=== PATIENT | female | born 1990 ===

== ENCOUNTER 2019-07-02 12:10 | Emergency (ER) | payer MEDICAID, SELFPAY ==
--- NOTE | 2019-07-02 16:06 | EDM.PDOC ---
ED HPI GENERAL MEDICAL PROBLEM - General Chief Complaint: Head Injury Stated Complaint: BACK AND HEAD INJURY Time Seen by Provider: 07/02/19 12:42 Source of Information: Reports: Patient, RN Notes Reviewed - History of Present Illness INITIAL COMMENTS - FREE TEXT/NARRATIVE: 28-year-old female comes in status post syncope at home. It is my understanding that she came private vehicle. She does not speak [place], her does speak limited [place]. The hx I am getting is that she was standing, became lightheaded and fell forward against a bed or a crib, she did strike the left side of her face as she fell. Length of time unconscious unknown. She currently feels fine with some mild left facial discomfort and mild right upper back pain. She has no current chest pain or difficulty breathing. She has not been ill with vomiting or other unusual symptoms that we are aware of. According to her she may have had one syncopal episode about 2 years ago. She is healthy on no regular medications. Neck Pain Score (Numeric/FACES): 2 - Related Data Allergies Allergy/AdvReac Type Severity Reaction Status Date / Time No Known Allergies Allergy Verified 07/02/19 12:29 Past Medical History Genitourinary History: Reports: Other (See Below) Other Genitourinary History: HPV Social & Family History - Tobacco Use Smoking Status *Q: Never Smoker - Recreational Drug Use Recreational Drug Use: No ED ROS GENERAL - Review of Systems Review Of Systems: See Below Constitutional: Reports: Diaphoresis (mild, gone) HEENT: Reports: Other (Mild L facial pain). Denies: Ear Discharge, Ear Pain Respiratory: Denies: Shortness of Breath, Pleuritic Chest Pain Cardiovascular: Denies: Chest Pain GI/Abdominal: Denies: Abdominal Pain, Nausea, Vomiting Musculoskeletal: Reports: Back Pain (right upper back) Neurological: Reports: Dizziness (gone) ED EXAM, HEAD INJURY - Physical Exam Exam: See Below General Appearance: Alert, No Apparent Distress Head: Facial Swelling (mild L face), Other (no bony tenderness) Eyes: Bilateral Eye: PERRL Ears: Normal External Exam Nose: Normal Inspection Throat/Mouth: Normal Inspection, Normal Oropharynx Neck: Non-Tender, Full Range of Motion Respiratory: No Respiratory Distress, Lungs Clear, Normal Breath Sounds Cardiovascular: Regular Rate, Rhythm Back Exam: Other (no visible swelling or bruising). No: Paraspinal Tenderness, Vertebral Tenderness Extremities: Normal Inspection, Normal Range of Motion Neurologic: No Motor/Sensory Deficits Skin: Normal Color, Warm/Dry Course - Vital Signs Last Recorded V/S: Last Vital Signs Temp 97.5 F 07/02/19 15:05 Pulse 78 07/02/19 16:15 Resp 16 07/02/19 16:15 BP 123/88 07/02/19 16:15 Pulse Ox 98 07/02/19 16:15 - Orders/Labs/Meds Labs: Laboratory Tests 07/02/19 07/02/19 Range/Units 13:15 13:15 WBC 6.39 (3.98-10.04) K/mm3 RBC 4.94 (3.98-5.22) M/mm3 Hgb 13.8 (11.2-15.7) gm/L Hct 41.3 (34.1-44.9) % MCV 83.6 (79.4-94.8) fl MCH 27.9 (25.6-32.2) pg MCHC 33.4 (32.2-35.5) g/dl RDW Std Deviation 39.8 (36.4-46.3) fL Plt Count 331 D (182-369) K/mm3 MPV 10.0 (9.4-12.3) fl Neut % (Auto) 55.7 (34.0-71.1) % Lymph % (Auto) 31.8 (19.3-51.7) % [place] % (Auto) 10.6 (4.7-12.5) % Eos % (Auto) 1.4 (0.7-5.8) Baso % (Auto) 0.3 (0.1-1.2) % Neut # (Auto) 3.56 (1.56-6.13) K/mm3 Lymph # (Auto) 2.03 (1.18-3.74) K/mm3 [place] # (Auto) 0.68 H (0.24-0.36) K/mm3 Eos # (Auto) 0.09 (0.04-0.36) K/mm3 Baso # (Auto) 0.02 (0.01-0.08) K/mm3 Sodium 140 (136-145) mEq/L Potassium 3.9 (3.5-5.1) mEq/L Chloride 104 (98-107) mEq/L Carbon Dioxide 27 (21-32) mEq/L Anion Gap 12.9 (5-15) BUN 10 (7-18) mg/dL Creatinine 0.9 (0.55-1.02) mg/dL Est Cr Clr Drug Dosing TNP Estimated GFR (MDRD) > 60 (>60) mL/min BUN/Creatinine Ratio 11.1 L (14-18) Glucose 96 (74-106) mg/dL Calcium 9.0 (8.5-10.1) mg/dL Total Bilirubin 0.3 (0.2-1.0) mg/dL AST 10 L (15-37) U/L ALT 44 (14-59) U/L Alkaline Phosphatase 101 (46-116) U/L Total Protein 7.7 (6.4-8.2) g/dl Albumin 3.6 (3.4-5.0) g/dl Globulin 4.1 gm/dL Albumin/Globulin Ratio 0.9 L (1-2) Departure - Departure Time of Disposition: 16:05 Disposition: Home, Self-Care 01 Condition: Good Clinical Impression: Syncope Qualifiers: Syncope type: unspecified Qualified Code(s): R55 - Syncope and collapse - Discharge Information Instructions: Syncope, [id number] Referrals: Digna Walker NP [Primary Care Provider] - Forms: ED Department Discharge Additional Instructions: Drink plenty of water so you do not get dehydrated. If you do get weak or dizzy at any time sit down or lay down so you do not pass out. Follow-up with a doctor or medical provider at either of our clinics here in [place] if you have any further dizziness or other symptoms. Return to ED as needed.
== END 2019-07-02 16:15 | disposition home or self-care (01) ==
LOC: JD.ED 12:10
DX: R55 Syncope and collapse (principal); R22.0 Localized swelling, mass and lump, head; M54.6 Pain in thoracic spine
CPT/HCPCS: 36415; 80053; 85025; 99283; 99284

== ENCOUNTER 2020-02-06 21:29 | Emergency (ER) | payer MEDICAID, OTHER, SELFPAY ==
--- NOTE | 2020-02-06 23:03 | EDM.PDOC ---
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 No active bleeding on arrival to ED. Is had some mild occasional discomfort lower mid pelvis anteriorly. No radiation of pain to her back. Upper abdominal or chest discomfort. No shoulder discomfort or difficulty breathing. 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: Social & Family History - Tobacco Use Smoking Status *Q: Never Smoker ED ROS GENERAL - Review of Systems Review Of Systems: See Below Constitutional: Denies: Fever, Chills, Diaphoresis HEENT: Reports: No Symptoms Respiratory: Denies: Shortness of Breath Cardiovascular: Denies: Chest Pain GI/Abdominal: Reports: Abdominal Pain (Mild lower pelvic discomfort, bribed as occasional sharp shooting twinges) : Reports: Other (Very slight spotting as described above) Musculoskeletal: Denies: Back Pain Skin: Reports: No Symptoms Neurological: Reports: No Symptoms ED EXAM - Physical Exam Exam: See Below General Appearance: Alert, No Apparent Distress Throat/Mouth: Normal Inspection, Normal Oropharynx Head: Atraumatic Neck: Supple Respiratory/Chest: No Respiratory Distress, Lungs Clear, Normal Breath Sounds Cardiovascular: Regular Rate, Rhythm GI/Abdominal Exam: Soft, Non-Tender (Female) Exam: Adnexal Tenderness (Very minimal tenderness right adnexa, no mass palpable). No: Uterine Tenderness, Vaginal Bleeding (No blood clots in the vaginal vault at time of exam, cervix closed) Extremities: Normal Inspection, Normal Range of Motion Neurological: Alert, No Motor/Sensory Deficits Skin Exam: Warm, Dry, Normal Color Course - Vital Signs Last Recorded V/S: Last Vital Signs Temp 98.4 F 03/16/20 21:41 Pulse 94 02/06/20 21:41 Resp 19 02/06/20 21:41 BP 133/83 02/06/20 21:41 Pulse Ox 100 02/06/20 21:41 - Orders/Labs/Meds Labs: Laboratory Tests 02/06/20 02/06/20 Range/Units 22:18 22:18 WBC 7.58 (3.98-10.04) K/mm3 RBC 4.27 (3.98-5.22) M/mm3 Hgb 12.1 D (11.2-15.7) gm/dl Hct 37.2 (34.1-44.9) % MCV 87.1 D (79.4-94.8) fl MCH 28.3 (25.6-32.2) pg MCHC 32.5 (32.2-35.5) g/dl RDW Std Deviation 39.8 (36.4-46.3) fL Plt Count 261 (182-369) K/mm3 MPV 10.1 (9.4-12.3) fl Neut % (Auto) 50.4 (34.0-71.1) % Lymph % (Auto) 34.8 (19.3-51.7) % [place] % (Auto) 12.4 (4.7-12.5) % Eos % (Auto) 2.0 (0.7-5.8) Baso % (Auto) 0.3 (0.1-1.2) % Neut # (Auto) 3.82 (1.56-6.13) K/mm3 Lymph # (Auto) 2.64 (1.18-3.74) K/mm3 [place] # (Auto) 0.94 H (0.24-0.36) K/mm3 Eos # (Auto) 0.15 (0.04-0.36) K/mm3 Baso # (Auto) 0.02 (0.01-0.08) K/mm3 HCG, Quant 24750.0 mIU/mL Departure - Departure Time of Disposition: 23:59 Disposition: Home, Self-Care 01 Condition: Fair Clinical Impression: First trimester , Vaginal spotting, Pelvic pain during - Discharge Information Instructions: Vaginal Bleeding During , First Trimester Referrals: Dakota Lauren MD [Primary Care Provider] - Forms: ED Department Discharge Additional Instructions: There was no blood at time of exam while here in the ED. Rest. Order has been given for follow up OB ultrasound. Radiology Dept. will call you in the morning to set up an appointment for that. Return to ED if soaking more than 1 pad per hour for more than 1 or 2 hr. Follow up clinic as planned. Sepsis Event Note - Evaluation Sepsis Screening Result: No Definite Risk - Focused Exam Vital Signs: Vital Signs Temp Pulse Resp BP Pulse Ox 02/06/20 21:41 98.4 F 94 19 133/83 100 Date Exam was Performed: 02/07/20 Time Exam was Performed: 00:27
== END 2020-02-07 00:10 | disposition home or self-care (01) ==
LOC: JD.ED 21:29
DX: O26.851 Spotting complicating pregnancy, first trimester (principal); Z3A.01 Less than 8 weeks gestation of pregnancy
CPT/HCPCS: 36415; 84702; 85025; 99284

== ENCOUNTER 2020-02-10 09:18 | Emergency (ER) | payer OTHER ==
--- NOTE | 2020-02-10 11:09 | US ---
First trimester obstetrical ultrasound: Multiple real-time images were obtained transvaginally. Dates: LMP: LMP given as 12/30/19, MELISSA 10/05/20, gestational age 6 weeks 0 days Current ultrasound: MELISSA 10/03/20, gestational age 6 weeks 2 days Single intrauterine gestation is seen. Small pole and yolk sac are noted. Minimal subchorionic hemorrhage is present. Left maternal ovary shows a small 2.1 cm corpus luteum cyst. Maternal right ovary is unremarkable. Measurements: [place]-rump length: 0.53 cm - 6 weeks 2 days Heart rate: 123 bpm Impression: 1. Single intrauterine gestation. Dates as noted above. 2. Minimal subchorionic hemorrhage. 3. Small corpus luteum cyst within the maternal left ovary. Diagnostic code #3 This report was dictated in MDT
--- NOTE | 2020-02-10 11:43 | EDM.PDOC ---
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 She was here earlier in the week for abdominal pain. She has no fever, chills, cough, congestion, runny nose, chest pain, shortness of breath, dysuria or hematuria. Her OB doctor is Dr Lauren. She has no abdominal pain. 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: Musculoskeletal History: Reports: None Neurological History: Reports: None Psychiatric History: Reports: None Endocrine/Metabolic History: Reports: None Hematologic History: Reports: None Immunologic History: Reports: None Oncologic (Cancer) History: Reports: None Dermatologic History: Reports: None Social & Family History - Caffeine Use Caffeine Use: Reports: Coffee, Soda - Recreational Drug Use Recreational Drug Use: No ED ROS GENERAL - Review of Systems Review Of Systems: See Below Constitutional: Reports: No Symptoms HEENT: Reports: No Symptoms Respiratory: Reports: No Symptoms Cardiovascular: Reports: No Symptoms Endocrine: Reports: No Symptoms GI/Abdominal: Reports: No Symptoms : Reports: Other (Vaginal bleeding and ) ED EXAM - Physical Exam Exam: See Below Exam Limited By: No Limitations General Appearance: Alert, No Apparent Distress Ears: Normal External Exam Nose: Normal Inspection Head: Atraumatic, Normocephalic Neck: Normal Inspection Respiratory/Chest: No Respiratory Distress, Lungs Clear, Normal Breath Sounds Cardiovascular: Regular Rate, Rhythm, No Edema, No Murmur GI/Abdominal Exam: Soft, Non-Tender, No Organomegaly, No Mass Extremities: Normal Inspection Neurological: Alert, Oriented, No Motor/Sensory Deficits Course - Vital Signs Last Recorded V/S: Last Vital Signs Temp 98.7 F 02/10/20 09:57 Pulse 89 02/10/20 09:57 Resp 18 02/10/20 09:57 BP 125/79 02/10/20 09:57 Pulse Ox - Orders/Labs/Meds Labs: Laboratory Tests 02/10/20 02/10/20 02/10/20 Range/Units 11:05 11:05 11:05 WBC 7.67 (3.98-10.04) K/mm3 RBC 4.37 (3.98-5.22) M/mm3 Hgb 12.5 (11.2-15.7) gm/dl Hct 37.9 (34.1-44.9) % MCV 86.7 (79.4-94.8) fl MCH 28.6 (25.6-32.2) pg MCHC 33.0 (32.2-35.5) g/dl RDW Std Deviation 39.8 (36.4-46.3) fL Plt Count 255 (182-369) K/mm3 MPV 10.1 (9.4-12.3) fl Neut % (Auto) 66.8 (34.0-71.1) % Lymph % (Auto) 22.3 (19.3-51.7) % [place] % (Auto) 8.7 (4.7-12.5) % Eos % (Auto) 2.0 (0.7-5.8) Baso % (Auto) 0.1 (0.1-1.2) % Neut # (Auto) 5.12 (1.56-6.13) K/mm3 Lymph # (Auto) 1.71 (1.18-3.74) K/mm3 [place] # (Auto) 0.67 H (0.24-0.36) K/mm3 Eos # (Auto) 0.15 (0.04-0.36) K/mm3 Baso # (Auto) 0.01 (0.01-0.08) K/mm3 HCG, Quant 44279.0 mIU/mL Blood Type O POSITIVE - Re-Assessments/Exams Free Text/Narrative Re-Assessment/Exam: 02/10/20 11:57 I ordered labs and an US. Her CBC looks good. Her blood type is O positive. Her US shows single intrauterine gestation. Dates are 6 weeks 2 days. Minimal subchorionic hemorrhage. Small corpus luteum cyst within the maternal left ovary. 02/10/20 12:21 Her Hcg is 40,057. I will have her follow up with Dr Lauren. Departure - Departure Time of Disposition: 12:30 Disposition: Home, Self-Care 01 Condition: Good Clinical Impression: Subchorionic hematoma in first trimester Qualifiers: Fetus number: single or unspecified fetus Qualified Code(s): O41.8X10 - Other specified disorders of amniotic fluid and membranes, first trimester, not applicable or unspecified; O46.8X1 - Other antepartum hemorrhage, first trimester Qualifiers: Weeks of gestation: less than 8 weeks Qualified Code(s): Z3A.01 - Less than 8 weeks gestation of - Discharge Information *PRESCRIPTION DRUG MONITORING PROGRAM REVIEWED*: Not Applicable *COPY OF PRESCRIPTION DRUG MONITORING REPORT IN PATIENT ES: Not Applicable Referrals: Dakota Lauren MD [Primary Care Provider] - Forms: ED Department Discharge Additional Instructions: No levantar objetos pesados o relaciones sexuales vaginales hasta que tuttle mdico lo autorice. El Dr. Lauren est fuera de la clnica la prxima semana. Le ped sheeba libby para el Dr. Sifuentes a las 11 de la del . Por favor regstrese a las 10:45. Regrese si est peor, jem ms sangrado o dolor. Sepsis Event Note - Evaluation Sepsis Screening Result: No Definite Risk - Focused Exam Vital Signs: Vital Signs Temp Pulse Resp BP 02/10/20 09:57 98.7 F 89 18 125/79 Date Exam was Performed: 02/10/20 Time Exam was Performed: 12:21
== END 2020-02-10 12:38 | disposition home or self-care (01) ==
LOC: JD.ED 09:18
DX: O20.8 Other hemorrhage in early pregnancy (principal); Z3A.01 Less than 8 weeks gestation of pregnancy
CPT/HCPCS: 36415; 76817; 76817-26; 84702; 85025; 86900; 86901; 99282; 99284-25